=== PATIENT | male | born 1960 | race Caucasian/White ===

== ENCOUNTER 2019-04-13 10:13 | Day surgery (SDC) | payer OTHER ==
[2019-04-13] MEDS: LACTATED RINGER'S 1,000 ML IV (06:00)
[2019-04-13] MEDS: MOXIFLOXACIN 0.5% 3 ML OPH OPER (11:14)
[2019-04-13] MEDS: DICLOFENAC 0.1% 2.5 ML OPH OPER (11:14)
[2019-04-13] MEDS: TROPICAMIDE 1% 15 ML OPH OPER (11:15)
[2019-04-13] MEDS: PHENYLephrine 2.5% 15 ML OPH OPER (11:15)
[2019-04-13] MEDS: CYCLOPENTOLATE 1% 2 ML OPH OPER (11:15)
[2019-04-13] MEDS ORDERED: PHENYLephrine 10% 5 ML OPH (12:32)
[2019-04-13] MEDS ORDERED: MIDAZOLAM 1 MG/ML 2 ML INJ (12:40)
[2019-04-13] MEDS ORDERED: FENTAnyl 50 MCG/ML VIAL (12:40)
[2019-04-13] MEDS ORDERED: LABETALOL HCL 20MG INJ (12:43)
[2019-04-13] MEDS ORDERED: TIMOLOL 0.5% 5 ML OPH (12:52)
[2019-04-13] MEDS ORDERED: TRYPAN BLUE 0.5 ML SYG IO (12:52)
[2019-04-13] MEDS ORDERED: OXYCODONE/ACETAMINOPHEN (5/325) TAB PO (13:00)
[2019-04-13] MEDS ORDERED: morphine 2 MG INJ IV (13:00)
[2019-04-13] MEDS ORDERED: LABETALOL HCL 20MG INJ IV (13:00)
[2019-04-13] MEDS ORDERED: METOCLOPRAMIDE 10 MG INJ IV (13:00)
[2019-04-13] MEDS ORDERED: ONDANSETRON 4 MG INJ IV (13:00)
[2019-04-13] MEDS ORDERED: FENTAnyl 50 MCG/ML VIAL IV (13:00)
[2019-04-13] MEDS ORDERED: hydrALAzine 20 MG INJ IV (13:00)
[2019-04-13] MEDS: EPINEPHrine 1 MG INJ (13:28)
[2019-04-13] MEDS: LIDOCAINE 1% (MPF) 30 ML INJ (13:28)
[2019-04-13] MEDS: TIMOLOL 0.5% 5 ML OPH LEFT EYE (13:29)
[2019-04-13] MEDS ORDERED: ACETAZOLAMIDE (SR) 500 MG CAP PO (13:30)
[2019-04-13] MEDS: PHENYLephrine 10% 5 ML OPH LEFT EYE (13:30)
[2019-04-13] MEDS: TOBRAMYCIN/DEXAMETH 3.5 GM OPH OINT (13:31)
[2019-04-13] MEDS: TETRACAINE 0.5% 4 ML OPH (13:32)
== END 2019-04-13 15:00 | disposition home or self-care (01) ==
LOC: SDS 10:13
DX: H25.012 Cortical age-related cataract, left eye (principal); I10 Essential (primary) hypertension; E78.5 Hyperlipidemia, unspecified; E11.9 Type 2 diabetes mellitus without complications
CPT/HCPCS: 66984; 82962